=== PATIENT | female | born 1970 | race Caucasian/White ===

== ENCOUNTER 2017-10-13 11:41 | Emergency (ER) | payer MEDICAID ==
[2017-10-13] MEDS: HYDROCODONE/APAP (5/325) TAB PO (12:48)
[2017-10-13] MEDS: KETOROLAC 60 MG INJ IM (12:48)
== END 2017-10-13 14:26 | disposition home or self-care (01) ==
LOC: FTE 11:41
DX: S86.812A Strain of other muscle(s) and tendon(s) at lower leg level, left leg, initial encounter (principal); S53.401A Unspecified sprain of right elbow, initial encounter; R51 Headache; W01.0XXA Fall on same level from slipping, tripping and stumbling without subsequent striking against object, initial encounter; Y92.9 Unspecified place or not applicable
CPT/HCPCS: 73080; 73080-RT; 73562; 81025; 96372; 99284-25